=== PATIENT | female | born 1945 | race Caucasian/White ===

== ENCOUNTER → 2017-03-15 | Outpatient (CLI) | payer MEDICARE, OTHER ==
--- NOTE | 2017-03-15 14:51 | MM ---
Reason for exam: screening (asymptomatic). Baseline mammogram. History: Patient is postmenopausal. Physical Findings: Nurse Summary: 1cm nodule at 9 o'clock in the left breast. MG Screening Mammo w CAD Bilateral CC and MLO view(s) were taken. No prior studies available for comparison. The breast tissue is heterogeneously dense. This may lower the sensitivity of mammography. Small nodularity in the left breast. These results were verbally communicated with the patient and result sheet given to the patient on 03/15/17. ASSESSMENT: Incomplete: need additional imaging evaluation, BI-RAD 0 RECOMMENDATION: Ultrasound of the left breast. Palpable by nurse.
--- NOTE | 2017-03-15 14:52 | USB ---
Reason for exam: additional evaluation requested from abnormal screening. History: Patient is postmenopausal. US Breast Workup Limited LT Left breast ultrasound demonstrates no cystic or solid lesion seen. These results were verbally communicated with the patient and result sheet given to the patient on 03/15/17. ASSESSMENT: Probably benign, BI-RAD 3 RECOMMENDATION: Follow-up diagnostic mammogram of the left breast in 6 months.
== END | disposition home or self-care (01) ==
LOC: RADMAMWWP 13:08
PROVIDERS: ATTEND Internal Medicine
DX: Z12.31 Encounter for screening mammogram for malignant neoplasm of breast (principal); R92.2 Inconclusive mammogram; R92.8 Other abnormal and inconclusive findings on diagnostic imaging of breast
CPT/HCPCS: 76642; G0202

== ENCOUNTER → 2018-03-18 | Outpatient (CLI) | payer MEDICARE, OTHER ==
--- NOTE | 2018-03-18 10:06 | MR ---
EXAMINATION TYPE: MR brain wo/w con DATE OF EXAM: 03/18/2018 COMPARISON: NONE HISTORY: Dysarthria TECHNIQUE: Multiplanar, multisequence images of the brain and brainstem is performed without and with IV contras t, utilizing 9 mL intravenous Gadavist . FINDINGS: Diffusion weighted images demonstrate no evidence of a recent infarct or other diffusion ab normality. There is no mass effect or midline shift. Ventricular system compatible with the patient' s age. White matter: There are numerous areas of abnormal signal scattered throughout the white matter bilat erally in a nonspecific pattern no enhancing lesions. No callosal lesions. Midline structures demonstrate normal morphology. The craniocervical junction appears within normal limits. Post contrast images demonstrate no abnormal enhancement. Abnormal signal within the singh mo st typical remote ischemic change. Mild changes of chronic sinusitis. IMPRESSION: 1. Nonspecific white matter changes most typical remote microvascular ischemia. 2. Abnormal signal in singh suggestive of remote ischemia.
== END | disposition home or self-care (01) ==
LOC: RADMRIMAIN 09:10
PROVIDERS: ATTEND Internal Medicine
DX: R90.82 White matter disease, unspecified (principal); Z86.73 Personal history of transient ischemic attack (TIA), and cerebral infarction without residual deficits
CPT/HCPCS: 70553; A9581

== ENCOUNTER → 2018-07-04 | Outpatient (CLI) | payer MEDICARE, OTHER ==
--- NOTE | 2018-07-04 13:15 | US ---
EXAMINATION TYPE: US thyroid st tissue head/neck DATE OF EXAM: 07/04/2018 COMPARISON: NONE CLINICAL HISTORY: E04.1 Thyroid Nodule. GLAND SIZE: Right Lobe: 4.5 x 1.6 x 1.4 cm Overall Parenchyma: homogenous Left Lobe: 4.5 x 1.7 x 1.5 cm Overall Parenchyma: homogeneous Isthmus Thickness: 0.2 cm NODULES RIGHT: # of nodules measured on right: 0 LEFT: # of nodules measured on left: 1 1. 0.6 X 0.5 x 0.5 cm isoechoic solid nodule at the mid pole with well-defined margins; . This nod ule is wider than tall and shows no intranodular vascularity. Prior size: no prior ISTHMUS: # of nodules measured in the isthmus: 0 Bilateral neck scanned, no evidence of lymphadenopathy. Tiny colloid cyst on left lobe measures 0.3 cm. IMPRESSION: 3 mm benign-appearing left thyroid colloid cyst and additional subcentimeter hypoechoic left thyroid nodule for which surveillance is recommended as this does not meet criteria for fine-needle aspiratio n at this time.
== END | disposition home or self-care (01) ==
LOC: RADUSWWP 11:58
PROVIDERS: ATTEND Internal Medicine
DX: E04.1 Nontoxic single thyroid nodule (principal)
CPT/HCPCS: 76536

== ENCOUNTER → 2019-02-09 | Outpatient (CLI) | payer MEDICARE, OTHER ==
--- NOTE | 2019-02-09 15:56 | US ---
EXAMINATION TYPE: US thyroid st tissue head/neck DATE OF EXAM: 02/09/2019 COMPARISON: 07/04/2018 CLINICAL HISTORY: 74-year-old female E04.1 Thryoid nodule. Follow up thyroid nodule TECHNIQUE: Multiple sonographic images of the thyroid gland are obtained. FINDINGS: GLAND SIZE: Right Lobe: 4.5 x 1.7 x 1.5 cm Overall Parenchyma: homogenous Left Lobe: 4.2 x 1.5 x 1.4 cm Overall Parenchyma: homogeneous Isthmus Thickness: 0.3 cm NODULES RIGHT: # of nodules measured on right: 0 LEFT: # of nodules measured on left: 2 1. 7 x 6 x 5 mm hypoechoic mixed nodule at the lower pole with well-defined margins. This nodule is w ider than tall and shows no intranodular vascularity. Prior size: 0.6 x 0.5 x 0.5 cm 2. 3 x 3 x 2 mm colloid cyst at the upper pole with well-defined margins. This nodule is wider than t all and shows no intranodular vascularity. Prior size: 3 x 2 x 2 mm ISTHMUS: # of nodules measured in the isthmus: 0 Bilateral neck scanned, no evidence of lymphadenopathy. IMPRESSION: 1. 7 x 6 mm nodule in the left lower pole versus 6 x 5 mm, previously. Additional follow-up can be co nsidered. 2. The 3 mm colloid cyst in the left lobe is unchanged.
== END | disposition home or self-care (01) ==
LOC: RADUSWWP 15:05
PROVIDERS: ATTEND Internal Medicine
DX: E04.1 Nontoxic single thyroid nodule (principal)
CPT/HCPCS: 76536

== ENCOUNTER → 2019-03-08 | Outpatient (CLI) | payer MEDICARE, OTHER ==
--- NOTE | 2019-03-08 12:20 | FL ---
EXAMINATION TYPE: FL barium swallow w video DATE OF EXAM: 03/08/2019 MODIFIED SWALLOW / DEGLUTITION STUDY CLINICAL HISTORY: Dysphagia. Aphasia also per order. Altered speech recently. TECHNIQUE: Deglutition study is performed utilizing thin liquid barium, honey and nectar thick liqui d barium, barium thick applesauce, and barium coated cracker. A total of 1 minute 49 seconds of fluor oscopic time was utilized during procedure. 0 spot images are saved to PACS. COMPARISON: None. FINDINGS: The oral and pharyngeal phases show satisfactory initiation with all modalities tested. Th ere is poor epiglottis inversion. Satisfactory mastication is seen with solid modalities tested. The re is aspiration which does not initiate cough reflex with thin liquid barium. Other modalities show no penetration or aspiration. More viscous modalities show moderate pharyngeal residuals IMPRESSION: Aspiration with thin liquid barium. Please refer to speech therapist notes for further d etails if necessary.
== END ==
LOC: RADFLMAIN 11:26
PROVIDERS: ATTEND Internal Medicine
DX: R47.01 Aphasia (principal); R13.12 Dysphagia, oropharyngeal phase
CPT/HCPCS: 74230

== ENCOUNTER → 2019-03-18 | Outpatient (CLI) | payer MEDICARE, OTHER ==
--- NOTE | 2019-03-18 09:42 | MR ---
EXAMINATION TYPE: MR brain wo/w con DATE OF EXAM: 03/18/2019 9:32 AM COMPARISON: Previous study dated 03/18/2018. HISTORY: Facial nerve disorder, TIA, compare to prior MR 03-18-18 TECHNIQUE: Multiplanar, multiecho imaging of the brain was obtained with and without intravenous adm inistration of 6 mL intravenous Gadavist. FINDINGS: There is abnormal signal within the leticia likely secondary to layering degeneration. This peterson s progressed from previous. Midline structures are otherwise unremarkable. There is a normal cranioce rvical junction. Echoplanar diffusion imaging is unremarkable. There are normal vascular flow voids. The orbits are unremarkable. There is no evidence of a CP angle mass lesion. There is both diffuse and punctate periventricular white matter change. This has progressed from prev ious. This likely represents a combination of chronic White matter ischemic change and small vessel d isease. Other forms of demyelination are not excluded. There is no evidence of mass effect, midline s hift or intracranial blood. Following intravenous administration of gadolinium, I do not see evidence of abnormal enhancement. IMPRESSION: 1. NO ACUTE INTRACRANIAL ABNORMALITY. 2. PROGRESSION OF THE PATIENT'S PREVIOUSLY DESCRIBED RIGHT MATTER CHANGES INCLUDING THE LETICIA LIKELY R EFLECTS A COMBINATION OF SMALL VESSEL DISEASE AND CHRONIC ISCHEMIC CHANGE. OTHER CAUSES OF DEMYELINAT ION ARE NOT EXCLUDED.
== END | disposition home or self-care (01) ==
LOC: RADMRIMAIN 08:45
PROVIDERS: ATTEND Psychiatry & Neurology Neurology
DX: G45.9 Transient cerebral ischemic attack, unspecified (principal); G51.9 Disorder of facial nerve, unspecified
CPT/HCPCS: 70553; A9585

== ENCOUNTER 2019-04-22 19:36 | Emergency (ER) | payer MEDICARE, OTHER ==
[2019-04-22 19:55] VITALS: TEMP 98.9
[2019-04-22] MEDS ORDERED: DIPH,PERTUS(ACELL)TETVAC-LF 0.5 ML VIAL IM ONE (19:56)
[2019-04-22] MEDS ORDERED: ACETAMINOPHEN TAB 500 MG TAB PO STA (20:23)
--- NOTE | 2019-04-22 21:38 | CT ---
EXAMINATION TYPE: CT brain wo con, CT facial bones wo con DATE OF EXAM: 04/22/2019 HISTORY: Fall injury with headache and facial pain. CT DLP: 1350 mGycm. Automated Exposure Control for Dose Reduction was Utilized. TECHNIQUE: CT scan of the head and facial bones are performed without contrast. COMPARISON: None. FINDINGS: There is no acute intracranial hemorrhage or midline shift identified. There is diffuse v entricular and sulcal prominence consistent with diffuse age-related cerebral atrophy. There is low- attenuation in the periventricular white matter consistent with chronic small vessel ischemic change. The calvarium is intact. There are acute comminuted minimally displaced fractures through the nasal bones with adjacent soft t issue swelling. Orbital floors and suresh are intact. The globes are intact bilaterally. Intraconal fa t is preserved. The zygomatic arches are intact bilaterally. The pterygoid plates are intact. The man dible is intact. Temporomandibular joints are maintained. There are air-fluid levels in bilateral maxillary sinuses without evidence of acute fracture. Remaind er paranasal sinuses are clear. IMPRESSION: 1. No acute intracranial hemorrhage or midline shift. There is mild to moderate diffuse age-related cerebral atrophy and moderate chronic small vessel ischemic change redemonstrated. 2. Acute minimally displaced comminuted fractures through the nasal bones are present. Possible bila teral acute maxillary sinusitis, correlate clinically acute maxillary wall fractures are not clearly identified.
--- NOTE | 2019-04-22 22:02 | ED ---
Fall HPI - General Chief Complaint: Fall Stated Complaint: Fall/Facial injury Time Seen by Provider: 04/22/19 19:56 Source: patient Mode of arrival: wheelchair - History of Present Illness Initial Comments: 74-year-old female patient presents to the emergency department today for evaluation of facial injury. Patient was walking when she slipped and fell and struck her face on the floor. Patient denies any loss of consciousness with this. She denies any current headache or neck pain. Patient does have some bleeding from the nose and is concerned she may have broken it. She denies any chest pain, shortness of breath, abdominal pain, nausea, or vomiting. Denies any blurred or double vision. She denies any other injuries. Denies any use of anticoagulant or antiplatelet medications. She is unsure when her last tetanus vaccine was administered. Patient denies any back pain, dizziness, weakness, or difficulties with bowel movements or urination. - Related Data Home Medications Medication Instructions Recorded Confirmed ALPRAZolam [Xanax] 0.5 mg PO BID PRN 04/22/19 04/22/19 Aspirin EC [Ecotrin] 325 mg PO HS 04/22/19 04/22/19 Cholecalciferol [Vitamin D3 (25 1,000 unit PO DAILY 04/22/19 04/22/19 Mcg = 1000 Iu)] Citalopram Hydrobromide 20 mg PO DAILY 04/22/19 04/22/19 [Citalopram HBr] Cyanocobalamin [Vitamin B-12] 500 mcg PO DAILY 04/22/19 04/22/19 Losartan-Hctz 50-12.5 mg [Hyzaar 1 tab PO DAILY 04/22/19 04/22/19 50-12.5] Omeprazole 20 mg PO DAILY 04/22/19 04/22/19 Pravastatin Sodium [Pravachol] 40 mg PO DAILY 04/22/19 04/22/19 Previous Rx's Medication Instructions Recorded Cephalexin [Keflex] 500 mg PO Q6H #28 cap 04/22/19 Allergies Allergy/AdvReac Type Severity Reaction Status Date / Time No Known Allergies Allergy Verified 04/22/19 20:21 Review of Systems ROS Statement: Those systems with pertinent positive or pertinent negative responses have been documented in the HPI. ROS Other: All systems not noted in ROS Statement are negative. Past Medical History Past Medical History: CVA/TIA, GERD/Reflux, Hyperlipidemia, Hypertension History of Any Multi-Drug Resistant Organisms: None Reported Past Surgical History: Cholecystectomy, Hernia Repair Past Psychological History: Anxiety, Depression Smoking Status: Former smoker Past Alcohol Use History: None Reported Past Drug Use History: None Reported General Exam Limitations: language barrier General appearance: alert, in no apparent distress, other (Physical well- developed, well-nourished elderly female patient in no acute distress. Vital signs upon presentation are temperature 98.9F, pulse 73, respirations 18, blood pressure 145/79, pulse ox 90% on room air.) Eye exam: Present: normal appearance, PERRL, EOMI. Absent: scleral icterus, conjunctival injection, periorbital swelling ENT exam: Present: normal oropharynx, mucous membranes moist, other (Patient has swelling noted over the nasal bone. There is mild ecchymosis noted to the bilateral periorbital region. She has small abrasion noted to the nasal bridge. There is mild bleeding noted from the bilateral nostrils). Absent: normal exam Neck exam: Present: normal inspection, full ROM, other (Nontender, no step-off, no deformity to firm midline palpation of the posterior cervical spine. Full range of motion without pain or limitation.). Absent: tenderness, meningismus, lymphadenopathy Respiratory exam: Present: normal lung sounds bilaterally. Absent: respiratory distress, wheezes, rales, rhonchi, stridor Cardiovascular Exam: Present: regular rate, normal rhythm, normal heart sounds. Absent: systolic murmur, diastolic murmur, rubs, gallop, clicks GI/Abdominal exam: Present: soft, normal bowel sounds. Absent: distended, tenderness, guarding, rebound, rigid Neurological exam: Present: alert, oriented X3, CN II-XII intact, other (Strength in all 4 extremities is 5/5) Psychiatric exam: Present: normal affect, normal mood Skin exam: Present: warm, dry, intact, normal color. Absent: rash Course Vital Signs 04/22/19 04/22/19 19:48 22:17 Temperature 98.9 F Pulse Rate 73 92 Respiratory 18 16 Rate Blood Pressure 145/79 139/78 O2 Sat by Pulse 90 L 100 Oximetry Medical Decision Making - Medical Decision Making 74-year-old female patient presented to the emergency department today for evaluation of facial pain after experiencing a fall. Physical examination did reveal swelling surrounding the nasal bone with a small abrasion. There is also tenderness over the nasal bone. CT facial bones and brain was obtained. Brain CT is negative. There is evidence of comminuted nasal bone fracture. Patient was started on antibiotics. Her tetanus was updated. She'll be discharged home at this time to follow-up with the ears, nose, throat specialist for further evaluation. Did discuss findings and results with the patient. She verbalizes understanding and agrees with this plan. - Radiology Data Radiology results: report reviewed, image reviewed CT facial bones and brain was obtained. Report was reviewed in its entirety. Impression by Dr. Groves shows no acute intracranial hemorrhage or midline shift. There is mild to moderate diffuse age-related cerebral atrophy and moderate chronic small vessel ischemic changes redemonstrate a. Acute displaced comminuted fracture to the nasal bones are present. Possible bilateral acute maxillary sinusitis without evidence of acute fracture. Disposition Clinical Impression: Nasal bone fracture Disposition: HOME SELF-CARE Condition: Good Instructions (If sedation given, give patient instructions): Nasal Fracture (ED) Additional Instructions: Apply ice. Take Tylenol as needed for pain control. Follow-up with the ears, nose, throat specialist for further evaluation. Return to the emergency department immediately for any new, worsening, or concerning symptoms Prescriptions: Cephalexin [Keflex] 500 mg PO Q6H #28 cap Is patient prescribed a controlled substance at d/c from ED?: No Referrals: Libertad Campos MD [Primary Care Provider] - 1-2 days Cruzito Pizano DO [Doctor of Osteopathic Medicine] - 1-2 days Time of Disposition: 22:02
[2019-04-22 22:18] VITALS: BP 139/78; PULSE 92; RESP 16
== END 2019-04-22 22:18 | disposition home or self-care (01) ==
LOC: EC 19:36
DX: S02.2XXA Fracture of nasal bones, initial encounter for closed fracture (principal); S00.12XA Contusion of left eyelid and periocular area, initial encounter; S00.11XA Contusion of right eyelid and periocular area, initial encounter; K21.9 Gastro-esophageal reflux disease without esophagitis; E78.5 Hyperlipidemia, unspecified; I10 Essential (primary) hypertension; F41.9 Anxiety disorder, unspecified; F32.9 Major depressive disorder, single episode, unspecified; Z86.73 Personal history of transient ischemic attack (TIA), and cerebral infarction without residual deficits; Z87.891 Personal history of nicotine dependence; Z23 Encounter for immunization; Z79.82 Long term (current) use of aspirin; Z79.899 Other long term (current) drug therapy; W01.10XA Fall on same level from slipping, tripping and stumbling with subsequent striking against unspecified object, initial encounter; Y92.59 Other trade areas as the place of occurrence of the external cause
CPT/HCPCS: 70450; 70486; 90471; 90715; 99283

== ENCOUNTER 2019-04-28 14:39 | Emergency (ER) | payer MEDICARE, OTHER ==
[2019-04-28 15:07] VITALS: RESP 18; TEMP 97.9
--- NOTE | 2019-04-28 16:03 | ED ---
ENT HPI - General Chief complaint: ENT Stated complaint: Bloody nose, Fall on wednesday Time Seen by Provider: 04/28/19 15:38 Source: patient, family Mode of arrival: wheelchair Limitations: no limitations - History of Present Illness Initial comments: Patient is a 74-year-old female complaining of nosebleed on and off 2-3 days. Patient was recently in the emergency department 5 days ago for a fall. She sustained a nasal bone fracture and was put on antibiotics. Patient was also instructed to stop aspirin for 1-2 days. Patient returns today with 2 of her daughters with continued of a nosebleed today. They have concerns that something else is going on. Patient denies any further trauma to the area. Patient did restart the aspirin 2 days ago. Patient also reports occasional left vision changes since the fall. No other complaints at this time. - Related Data Home Medications Medication Instructions Recorded Confirmed ALPRAZolam [Xanax] 0.5 mg PO BID PRN 04/22/19 04/22/19 Aspirin EC [Ecotrin] 325 mg PO HS 04/22/19 04/22/19 Cholecalciferol [Vitamin D3 (25 1,000 unit PO DAILY 04/22/19 04/22/19 Mcg = 1000 Iu)] Citalopram Hydrobromide 20 mg PO DAILY 04/22/19 04/22/19 [Citalopram HBr] Cyanocobalamin [Vitamin B-12] 500 mcg PO DAILY 04/22/19 04/22/19 Losartan-Hctz 50-12.5 mg [Hyzaar 1 tab PO DAILY 04/22/19 04/22/19 50-12.5] Omeprazole 20 mg PO DAILY 04/22/19 04/22/19 Pravastatin Sodium [Pravachol] 40 mg PO DAILY 04/22/19 04/22/19 Previous Rx's Medication Instructions Recorded Cephalexin [Keflex] 500 mg PO Q6H #28 cap 04/22/19 Allergies Allergy/AdvReac Type Severity Reaction Status Date / Time No Known Allergies Allergy Verified 04/28/19 15:07 Review of Systems ROS Statement: Those systems with pertinent positive or pertinent negative responses have been documented in the HPI. ROS Other: All systems not noted in ROS Statement are negative. Past Medical History Past Medical History: CVA/TIA, GERD/Reflux, Hyperlipidemia, Hypertension History of Any Multi-Drug Resistant Organisms: None Reported Past Surgical History: Cholecystectomy, Hernia Repair Past Psychological History: Anxiety, Depression Smoking Status: Former smoker Past Alcohol Use History: None Reported Past Drug Use History: None Reported General Exam - General Exam Comments Initial Comments: GENERAL: Well-appearing, well-nourished and in no acute distress. HEAD: Atraumatic, normocephalic. EYES: Pupils equal round and reactive to light, extraocular movements intact, sclera anicteric, conjunctiva are normal. Visual acuity normal ENT: TMs normal, nares patent, oropharynx clear without exudates. Moist mucous membranes. Nose bleed from the right nostril. Bruising present along the nasal bone and underneath both eyes from nasal fracture. NECK: Normal range of motion, supple without lymphadenopathy or JVD. LUNGS: Breath sounds clear to auscultation bilaterally and equal. No wheezes rales or rhonchi. HEART: Regular rate and rhythm without murmurs, rubs or gallops. ABDOMEN: Soft, nontender, normoactive bowel sounds. No guarding, no rebound. No masses appreciated. : Deferred EXTREMITIES: Normal range of motion, no pitting or edema. No clubbing or cyanosis. NEUROLOGICAL: Cranial nerves II through XII grossly intact. Normal speech, normal gait. PSYCH: Normal mood, normal affect. SKIN: Warm, Dry, normal turgor, no rashes or lesions noted. Limitations: no limitations Course Vital Signs 04/28/19 04/28/19 15:03 17:11 Temperature 97.9 F 97.9 F Pulse Rate 68 75 Respiratory 18 18 Rate Blood Pressure 117/63 149/67 O2 Sat by Pulse 92 L 94 L Oximetry Medical Decision Making - Medical Decision Making Patient is a 74-year-old female complaining of nosebleed status post nasal fracture 5 days ago. Patient was seen in this ER for fall [address] confirmed nasal bone fracture. Patient is back today due to continued nosebleed 1 day. Chest reports occasional left vision changes. Exam was unremarkable including neuro and vision exam. Nosebleed was stopped with use of nose clamp. Discussed with patient weighs to stopat home. Patient counseled to stop aspirin for another 3 days. Patient will follow up with ENT for other further complaints. Patient was happy with plan and will be discharged. Case discussed with Dr. Sterling. Disposition Clinical Impression: Epistaxis Disposition: HOME SELF-CARE Condition: Stable Instructions (If sedation given, give patient instructions): Nosebleed (ED) Additional Instructions: Please return to the Emergency Department if symptoms worsen or any other concerns. Follow-up with ENT. Is patient prescribed a controlled substance at d/c from ED?: No Referrals: Libertad Campos MD [Primary Care Provider] - 1-2 days
[2019-04-28 17:13] VITALS: BP 149/67; PULSE 75
== END 2019-04-28 17:13 | disposition home or self-care (01) ==
LOC: EC 14:39
DX: R04.0 Epistaxis (principal); S02.2XXD Fracture of nasal bones, subsequent encounter for fracture with routine healing; K21.9 Gastro-esophageal reflux disease without esophagitis; E78.5 Hyperlipidemia, unspecified; I10 Essential (primary) hypertension; F41.9 Anxiety disorder, unspecified; F32.9 Major depressive disorder, single episode, unspecified; Z86.14 Personal history of Methicillin resistant Staphylococcus aureus infection; Z87.891 Personal history of nicotine dependence; Z79.82 Long term (current) use of aspirin; Z79.899 Other long term (current) drug therapy; W19.XXXD Unspecified fall, subsequent encounter
CPT/HCPCS: 99283

== ENCOUNTER → 2019-05-03 | Outpatient (CLI) | payer MEDICARE, OTHER ==
--- NOTE | 2019-05-03 12:05 | XR ---
EXAMINATION TYPE: XR chest 2V DATE OF EXAM: 05/03/2019 COMPARISON: 12/02/2011 HISTORY: Cough TECHNIQUE: Frontal and lateral views of the chest are obtained. FINDINGS: Patchy right middle lobe opacity is seen on the frontal view only. Remainder the lungs are clear. Pulmonary hyperinflation suggests a component of underlying pulmonary COPD. Cardiomediastinal silhouette is prominent, upper limits of normal and unchanged from the prior. Minimal degenerative c hanges of the thoracic spine are present. IMPRESSION: Patchy right middle lobe opacity may represent early pneumonia or atelectasis frontal vi ew only.
== END | disposition home or self-care (01) ==
LOC: RADXRMAIN 10:00
PROVIDERS: ATTEND Otolaryngology
DX: R91.8 Other nonspecific abnormal finding of lung field (principal); R05 Cough
CPT/HCPCS: 71046

== ENCOUNTER 2019-08-21 15:44 | Inpatient (IN) | payer MEDICARE, OTHER ==
[2019-08-21] MEDS ORDERED: IPRATROPIUM-ALBUTEROL 3 ML NEB INHALATION STA (16:17)
[2019-08-21 17:16] LABS: Appearance,Urine Clear (Clear); Bilirubin,Urine Negative (Negative); Blood,Urine Negative (Negative); Color,Urine Yellow; Glucose,Urine (UA) Negative (Negative); Ketones,Urine Negative (Negative); Leukocyte Esterase,Urine Large (Negative); Mucus,Urine Rare /hpf; Nitrite,Urine Negative (Negative); Protein,Urine Negative (Negative); RBC,Urine <1 /hpf (0-5); Specific Gravity,Urine 1.015 (1.001-1.035); Squamous Epithelial Cell,Urine <1 /hpf (0-4)
--- NOTE | 2019-08-21 17:18 | ED ---
SOB HPI - General Chief Complaint: Shortness of Breath Stated Complaint: SOB/trouble urinating Time Seen by Provider: 08/21/19 16:06 Source: patient, RN notes reviewed, old records reviewed Mode of arrival: wheelchair Limitations: language barrier, physical limitation - History of Present Illness Initial Comments: This is a 74-year-old female the ER for evaluation she presents today for evaluation of shortness of breath. Patient is medical history significant medical medical problems including diagnosis of ALS. Her visiting nurse patient was known and found to have a low pulse ox. Pulse ox is low today. Patient is on home O2. Patient is unable to speak secondary to ALS is right down that she's been having falls and increasing weakness. Family denies any recent fevers no recent change in medications multiple recent hospitalizations. No k nown significant sick contacts - Related Data Home Medications Medication Instructions Recorded Confirmed ALPRAZolam [Xanax] 0.5 mg PO BID PRN 04/22/19 08/21/19 Citalopram Hydrobromide 20 mg PO DAILY 04/22/19 08/21/19 [Citalopram HBr] Omeprazole 20 mg PO DAILY 04/22/19 08/21/19 Pravastatin Sodium [Pravachol] 40 mg PO DAILY 04/22/19 08/21/19 Loratadine [Claritin] 10 mg PO DAILY 08/21/19 08/21/19 Losartan [Cozaar] 25 mg PO DAILY 08/21/19 08/21/19 Riluzole [Rilutek] 50 mg PO Q12H 08/21/19 08/21/19 Allergies Allergy/AdvReac Type Severity Reaction Status Date / Time No Known Allergies Allergy Verified 08/21/19 16:31 Review of Systems ROS Statement: Those systems with pertinent positive or pertinent negative responses have been documented in the HPI. ROS Other: All systems not noted in ROS Statement are negative. Past Medical History Past Medical History: CVA/TIA, GERD/Reflux, Hyperlipidemia, Hypertension Additional Past Medical History / Comment(s): als, feeding tube History of Any Multi-Drug Resistant Organisms: None Reported Past Surgical History: Cholecystectomy, Hernia Repair Additional Past Surgical History / Comment(s): feeding tube Past Psychological History: Anxiety, Depression Smoking Status: Former smoker Past Alcohol Use History: None Reported Past Drug Use History: None Reported General Exam Limitations: language barrier, physical limitation General appearance: alert, anxious, lethargic, in distress Head exam: Present: atraumatic, normocephalic, normal inspection Eye exam: Present: normal appearance, PERRL, EOMI. Absent: scleral icterus, conjunctival injection, periorbital swelling ENT exam: Present: normal exam, mucous membranes dry Neck exam: Present: normal inspection. Absent: tenderness, meningismus, lymphadenopathy Respiratory exam: Present: normal lung sounds bilaterally. Absent: respiratory distress, wheezes, rales, rhonchi, stridor Cardiovascular Exam: Present: regular rate, normal rhythm, normal heart sounds. Absent: systolic murmur, diastolic murmur, rubs, gallop, clicks GI/Abdominal exam: Present: soft, normal bowel sounds. Absent: distended, tenderness, guarding, rebound, rigid Extremities exam: Present: normal inspection, full ROM, normal capillary refill. Absent: tenderness, pedal edema, joint swelling, calf tenderness Back exam: Present: normal inspection Neurological exam: Present: alert, oriented X3, CN II-XII intact Psychiatric exam: Present: normal affect, normal mood Skin exam: Present: warm, dry, intact, normal color. Absent: rash Course Vital Signs 08/21/19 08/21/19 08/21/19 15:49 16:00 17:58 Temperature 98.2 F Pulse Rate 79 80 Respiratory 22 19 Rate Blood Pressure 110/51 120/61 O2 Sat by Pulse 77 L 93 L 77 L Oximetry 08/21/19 08/21/19 08/21/19 18:01 18:12 19:13 Temperature 98.3 F Pulse Rate 80 84 79 Respiratory 18 Rate Blood Pressure 108/60 O2 Sat by Pulse 93 L Oximetry - Reevaluation(s) Reevaluation #1: 08/21/19 19:25 Medical records reviewed Reevaluation #2: 08/21/19 19:25 Oxygen levels initially improved here in the ER - Consultations Consultation #1: Spoke with Dr. Garduno who is okay for admission Medical Decision Making - Medical Decision Making Every 2 female recent diagnosis of ALS coming in for hypoxia. Patient found to have significant pneumonia suspect aspiration pneumonia will cover clindamycin. Patient be admitted for continued monitoring of pulse ox respiration status. - Lab Data Result diagrams: 08/21/19 17:00 08/21/19 17:00 Lab Results 08/21/19 08/21/19 08/21/19 Range/Units 17:00 17:00 17:00 WBC 5.6 (3.8-10.6) k/uL RBC 4.27 (3.80-5.40) m/uL Hgb 12.6 (11.4-16.0) gm/dL Hct 37.4 (34.0-46.0) % MCV 87.7 (80.0-100.0) fL MCH 29.5 (25.0-35.0) pg MCHC 33.6 (31.0-37.0) g/dL RDW 15.3 (11.5-15.5) % Plt Count 180 (150-450) k/uL Neutrophils % 73 % Lymphocytes % 17 % Monocytes % 5 % Eosinophils % 2 % Basophils % 0 % Neutrophils # 4.1 (1.3-7.7) k/uL Lymphocytes # 1.0 (1.0-4.8) k/uL Monocytes # 0.3 (0-1.0) k/uL Eosinophils # 0.1 (0-0.7) k/uL Basophils # 0.0 (0-0.2) k/uL Hypochromasia Slight PT 9.8 (9.0-12.0) sec INR 0.9 (<1.2) APTT 23.9 (22.0-30.0) sec D-Dimer 0.62 H (<0.60) mg/L FEU Sodium 138 (137-145) mmol/L Potassium 4.7 (3.5-5.1) mmol/L Chloride 95 L (98-107) mmol/L Carbon Dioxide 39 H (22-30) mmol/L Anion Gap 4 mmol/L BUN 27 H (7-17) mg/dL Creatinine 0.40 L (0.52-1.04) mg/dL Est GFR (CKD-EPI)AfAm >90 (>60 ml/min/1.73 sqM) Est GFR (CKD-EPI)NonAf >90 (>60 ml/min/1.73 sqM) Glucose 119 H (74-99) mg/dL Calcium 8.6 (8.4-10.2) mg/dL Magnesium 2.0 (1.6-2.3) mg/dL Total Bilirubin 0.8 (0.2-1.3) mg/dL AST 22 (14-36) U/L ALT 13 (9-52) U/L Alkaline Phosphatase 63 (38-126) U/L Creatine Kinase 137 H (30-135) U/L Troponin I (0.000-0.034) ng/mL NT-Pro-B Natriuret Pep pg/mL Total Protein 6.1 L (6.3-8.2) g/dL Albumin 3.4 L (3.5-5.0) g/dL Urine Color Urine Appearance (Clear) Urine pH (5.0-8.0) Ur Specific Arma (1.001-1.035) Urine Protein (Negative) Urine Glucose (UA) (Negative) Urine Ketones (Negative) Urine Blood (Negative) Urine Nitrite (Negative) Urine Bilirubin (Negative) Urine Urobilinogen (<2.0) mg/dL Ur Leukocyte Esterase (Negative) Urine RBC (0-5) /hpf Urine WBC (0-5) /hpf Ur Squamous Epith Cells (0-4) /hpf Urine Mucus (None) /hpf 08/21/19 08/21/19 08/21/19 Range/Units 17:00 17:00 17:08 WBC (3.8-10.6) k/uL RBC (3.80-5.40) m/uL Hgb (11.4-16.0) gm/dL Hct (34.0-46.0) % MCV (80.0-100.0) fL MCH (25.0-35.0) pg MCHC (31.0-37.0) g/dL RDW (11.5-15.5) % Plt Count (150-450) k/uL Neutrophils % % Lymphocytes % % Monocytes % % Eosinophils % % Basophils % % Neutrophils # (1.3-7.7) k/uL Lymphocytes # (1.0-4.8) k/uL Monocytes # (0-1.0) k/uL Eosinophils # (0-0.7) k/uL Basophils # (0-0.2) k/uL Hypochromasia PT (9.0-12.0) sec INR (<1.2) APTT (22.0-30.0) sec D-Dimer (<0.60) mg/L FEU Sodium (137-145) mmol/L Potassium (3.5-5.1) mmol/L Chloride (98-107) mmol/L Carbon Dioxide (22-30) mmol/L Anion Gap mmol/L BUN (7-17) mg/dL Creatinine (0.52-1.04) mg/dL Est GFR (CKD-EPI)AfAm (>60 ml/min/1.73 sqM) Est GFR (CKD-EPI)NonAf (>60 ml/min/1.73 sqM) Glucose (74-99) mg/dL Calcium (8.4-10.2) mg/dL Magnesium (1.6-2.3) mg/dL Total Bilirubin (0.2-1.3) mg/dL AST (14-36) U/L ALT (9-52) U/L Alkaline Phosphatase (38-126) U/L Creatine Kinase (30-135) U/L Troponin I <0.012 (0.000-0.034) ng/mL NT-Pro-B Natriuret Pep 68 pg/mL Total Protein (6.3-8.2) g/dL Albumin (3.5-5.0) g/dL Urine Color Yellow Urine Appearance Clear (Clear) Urine pH 7.0 (5.0-8.0) Ur Specific Arma 1.015 (1.001-1.035) Urine Protein Negative (Negative) Urine Glucose (UA) Negative (Negative) Urine Ketones Negative (Negative) Urine Blood Negative (Negative) Urine Nitrite Negative (Negative) Urine Bilirubin Negative (Negative) Urine Urobilinogen 2.0 (<2.0) mg/dL Ur Leukocyte Esterase Large H (Negative) Urine RBC <1 (0-5) /hpf Urine WBC 25 H (0-5) /hpf Ur Squamous Epith Cells <1 (0-4) /hpf Urine Mucus Rare H (None) /hpf - EKG Data -: EKG Interpreted by Me (EKG shows sinus rhythm rate of 78, WV 154, QRS 74, QTC 442) - Radiology Data Radiology results: report reviewed (Chest x-ray shows significant pneumonia), image reviewed Critical Care Time Critical Care Time: Yes Total Critical Care Time: 31 Disposition Clinical Impression: Nosocomial pneumonia, Hypoxia Disposition: ADMITTED IP TO THIS HOSP Condition: Fair Is patient prescribed a controlled substance at d/c from ED?: No Referrals: Libertad Campos MD [Primary Care Provider] - 1-2 days
--- NOTE | 2019-08-21 17:27 | XR ---
EXAMINATION TYPE: XR chest 2V DATE OF EXAM: 08/21/2019 COMPARISON: 05/03/2019 HISTORY: Short of breath TECHNIQUE: Frontal and lateral views of the chest are obtained. FINDINGS: There is some coarse interstitial density in the lungs. There is slight blunting of the ri ght costophrenic angle. There is a mild infiltrate in the right middle lobe. There are no hilar lisette s. Heart size is normal. There is no heart failure. Bony thorax is intact. IMPRESSION: There is increased pleural reaction and right middle lobe infiltrate compared to last ex am. There is probably mild pulmonary fibrosis.
[2019-08-21 17:38] LABS: Basophils % (A) 0 %; Eosinophils # (A) 0.1 k/uL (0-0.7); Eosinophils % (A) 2 %; HCT 37.4 % (34.0-46.0); HGB 12.6 gm/dL (11.4-16.0); Hypochromasia Slight; Lymphocytes % (A) 17 %; MCH 29.5 pg (25.0-35.0); MCHC 33.6 g/dL (31.0-37.0); MCV 87.7 fL (80.0-100.0); Mean Platelet Volume 5.8; Monocytes # (A) 0.3 k/uL (0-1.0); Monocytes % (A) 5 %; Neutrophils # (A) 4.1 k/uL (1.3-7.7); Neutrophils % (A) 73 %; Platelet Count 180 k/uL (150-450); RBC 4.27 m/uL (3.80-5.40); RDW 15.3 % (11.5-15.5); WBC 5.6 k/uL (3.8-10.6)
[2019-08-21 17:48] LABS: ALT 13 U/L (9-52); AST 22 U/L (14-36); African American GFR (CKD) >90 (>60 ml/min/1.73 sqM); Albumin 3.4 g/dL (3.5-5.0); Alkaline Phosphatase 63 U/L (38-126); Anion Gap 4 mmol/L; Blood Urea Nitrogen 27 mg/dL (7-17); Calcium 8.6 mg/dL (8.4-10.2); Carbon Dioxide 39 mmol/L (22-30); Chloride 95 mmol/L (98-107); Creatine Kinase 137 U/L (30-135); Glucose 119 mg/dL (74-99); Potassium 4.7 mmol/L (3.5-5.1); Sodium 138 mmol/L (137-145); Total Bilirubin 0.8 mg/dL (0.2-1.3); Total Protein 6.1 g/dL (6.3-8.2)
[2019-08-21 17:49] LABS: INR 0.9 (<1.2); Partial Thromboplastin Time 23.9 sec (22.0-30.0); Prothrombin Time 9.8 sec (9.0-12.0)
[2019-08-21 18:15] LABS: D-Dimer 0.62 mg/L FEU (<0.60)
[2019-08-21] MEDS ORDERED: PNEUMONIA PROTOCOL UTILIZED 1 EACH MISC PO PRN (19:21)
[2019-08-21] MEDS ORDERED: PIPERACILLIN-TAZOBACTAM 3.375 GM in SODIUM CHLORIDE 0.9% 100 ML IVPB STA (19:21)
[2019-08-21] MEDS ORDERED: LEVOFLOXACIN 750MG-D5W PMX 750 MG in DEXTROSE/WATER 1 150ML.BAG IVPB STA (19:21)
[2019-08-21] MEDS: IPRATROPIUM-ALBUTEROL 3 ML NEB INHALATION SCH (20:26)
[2019-08-21] MEDS: SODIUM CHLORIDE 0.9% 1,000 ML IV SCH (21:24)
[2019-08-21] MEDS ORDERED: LEVOFLOXACIN 750MG-D5W PMX 750 MG in DEXTROSE/WATER 1 150ML.BAG IVPB ONE (23:00)
[2019-08-22] MEDS: NON FORMULARY DRUG (Riluzole [Rilutek] 50 MG) PO SCH ×2 (00:06→13:57)
[2019-08-22] MEDS: ALPRAZolam 0.5 MG TAB PO PRN ×2 (00:06→11:45)
[2019-08-22] MEDS: PANTOPRAZOLE 40 MG TABLET PO SCH ×2 (00:06→08:55)
[2019-08-22] MEDS: CLINDAMYCIN 600 MG in DEXTROSE 5% IN WATER 50 ML IVPB SCH ×6 (00:46→16:05)
[2019-08-22] MEDS: PIPERACILLIN-TAZOBACTAM 3.375 GM in SODIUM CHLORIDE 0.9% 100 ML IVPB SCH ×2 (04:51→11:45)
[2019-08-22] MEDS: SODIUM CHLORIDE 0.9% 1,000 ML IV SCH ×2 (04:51→16:05)
[2019-08-22] MEDS ORDERED: ENOXAPARIN 40 MG/0.4 ML SYRINGE SQ SCH (09:00)
[2019-08-22] MEDS: IPRATROPIUM-ALBUTEROL 3 ML NEB INHALATION SCH ×2 (09:10→12:06)
[2019-08-22] MEDS ORDERED: IBUPROFEN 400 MG TAB PO PRN (11:17)
[2019-08-22 11:31] VITALS: BMI 24.6
--- NOTE | 2019-08-22 12:04 | XR ---
EXAMINATION TYPE: XR chest 2V DATE OF EXAM: 08/22/2019 COMPARISON: 08/21/2019 HISTORY: Pneumonia TECHNIQUE: 2 view chest FINDINGS: Posterior left infiltrate remains present. There is diffuse increased lung markings which a ppear similar to prior study on the frontal projection. Small left pleural effusion may be present. IMPRESSION: 1. Posterior infiltrate left lower lobe is stable from comparison.
--- NOTE | 2019-08-22 13:33 | P.HPIM ---
History of Present Illness 74-year-old female known to me from her previous hospital physician in [facility] came in with complaints of shortness of breath patient was hypoxic and breathing harder. All the workup is positive for possible aspiration in the left lower lobar and there is some fibrosis in the right middle lobe. Patient does have history of amyotrophic lateral sclerosis presently bedbound. Patient declined hospice in the past. Patient was given but multiple antibiotics including Zosyn which is appropriate patient is also on clindamycin. I discarded all the medication patient was started on Augmentin. I gave her an option of staying here tonight versus going home patient is saturating well at this time patient uses 2 L of oxygen an as-needed basis at home. Patient doesn't have any significant wheezing on exam. patient blood pressure is low normal patient is on Cozaar patient did show significant amount of which is she was started on PEG tube feedings because of that reason I'll completely discontinue losartan loss of weight may be contributing to her better blood pressure control.has per the family patient have a better support system at home than here in the hospital regarding her tube feedings and overall care. Review of Systems REVIEW OF SYSTEMS: CONSTITUTIONAL: No fever, no malaise, no fatigue. HEENT: No recent visual problems or hearing problems. Denied any sore throat. CARDIOVASCULAR: No chest pain, orthopnea, PND, no palpitations, no syncope. PULMONARY: No shortness of breath, no cough, no hemoptysis. GASTROINTESTINAL: No diarrhea, no nausea, no vomiting, no abdominal pain. NEUROLOGICAL: No headaches, no weakness, no numbness. HEMATOLOGICAL: Denies any bleeding or petechiae. GENITOURINARY: Denies any burning micturition, frequency, or urgency. MUSCULOSKELETAL/RHEUMATOLOGICAL: Denies any joint pain, swelling, or any muscle pain. ENDOCRINE: Denies any polyuria or polydipsia. The rest of the 14-point review of systems is negative. patient is mostly nonverbal because of her amyotrophic lateral sclerosis does communicate with writing on a board Past Medical History Past Medical History: GERD/Reflux, Hyperlipidemia, Hypertension Additional Past Medical History / Comment(s): als, feeding tube History of Any Multi-Drug Resistant Organisms: None Reported Past Surgical History: Cholecystectomy, Hernia Repair Additional Past Surgical History / Comment(s): feeding tube Past Psychological History: Anxiety, Depression Smoking Status: Former smoker Past Alcohol Use History: None Reported Past Drug Use History: None Reported Medications and Allergies Home Medications Medication Instructions Recorded Confirmed Type ALPRAZolam [Xanax] 0.5 mg PO BID PRN 04/22/19 08/21/19 History Citalopram Hydrobromide 20 mg PO DAILY 04/22/19 08/21/19 History [Citalopram HBr] Omeprazole 20 mg PO DAILY 04/22/19 08/21/19 History Pravastatin Sodium [Pravachol] 40 mg PO DAILY 04/22/19 08/21/19 History Loratadine [Claritin] 10 mg PO DAILY 08/21/19 08/21/19 History Riluzole [Rilutek] 50 mg PO Q12H 08/21/19 08/21/19 History Albuterol Nebulized [Ventolin 2.5 mg INHALATION Q4H PRN #90 nebu 08/22/19 Rx Nebulized] Amoxic-Pot Clav 875-125Mg 1 tab PO BID 7 Days #14 tab 08/22/19 Rx [Augmentin 875-125] Allergies Allergy/AdvReac Type Severity Reaction Status Date / Time No Known Allergies Allergy Verified 08/21/19 16:31 Physical Exam Vitals: Vital Signs Temp Pulse Pulse Resp BP BP Pulse Ox 08/22/19 12:17 82 08/22/19 12:06 82 08/22/19 09:27 80 08/22/19 09:10 84 08/22/19 04:48 98.0 F 82 16 97/57 95 08/21/19 21:48 98.4 F 78 17 116/69 94 L 08/21/19 21:22 98.3 F 78 18 110/54 93 L 08/21/19 20:39 78 08/21/19 20:27 75 08/21/19 19:13 98.3 F 79 18 108/60 93 L 08/21/19 18:12 84 08/21/19 18:01 80 08/21/19 17:58 77 L 08/21/19 16:00 80 19 120/61 93 L 08/21/19 15:49 98.2 F 79 22 110/51 77 L Intake and Output 08/21/19 08/22/19 08/22/19 22:59 06:59 14:59 Other: Voiding Method Bedside Commode # Voids 2 Weight 63.049 kg 63.049 kg PHYSICAL EXAMINATION: GENERAL: The patient is alert and oriented x3, not in any acute distress. Well developed, well nourished. HEENT: Pupils are round and equally reacting to light. EOMI. No scleral icterus. No conjunctival pallor. Normocephalic, atraumatic. No pharyngeal erythema. No thyromegaly. CARDIOVASCULAR: S1 and S2 present. No murmurs, rubs, or gallops. PULMONARY: Chest is clear to auscultation, no wheezing or crackles. ABDOMEN: Soft, nontender, nondistended, normoactive bowel sounds. No palpable organomegaly. MUSCULOSKELETAL: No joint swelling or deformity. EXTREMITIES: No cyanosis, clubbing, or pedal edema. NEUROLOGICAL: significant weakness in both legs and less weakness in the arms tremor. SKIN: No rashes. Results CBC & Chem 7: 08/21/19 17:00 08/21/19 17:00 Labs: Abnormal Lab Results - Last 24 Hours (Table) 08/21/19 08/21/19 08/21/19 Range/Units 17:00 17:00 17:08 D-Dimer 0.62 H (<0.60) mg/L FEU Chloride 95 L (98-107) mmol/L Carbon Dioxide 39 H (22-30) mmol/L BUN 27 H (7-17) mg/dL Creatinine 0.40 L (0.52-1.04) mg/dL Glucose 119 H (74-99) mg/dL Creatine Kinase 137 H (30-135) U/L Total Protein 6.1 L (6.3-8.2) g/dL Albumin 3.4 L (3.5-5.0) g/dL Ur Leukocyte Esterase Large H (Negative) Urine WBC 25 H (0-5) /hpf Urine Mucus Rare H (None) /hpf Microbiology - Last 24 Hours (Table) 08/21/19 17:08 Urine Culture - Preliminary Urine,Voided Thrombosis Risk Factor Assmnt - Choose All That Apply Any of the Below Risk Factors Present?: No Other Risk Factors: Yes Each Risk Factor Represents 2 Points: Age 61-74 years Other congenital or acquired thrombophilia - If yes, enter type in comment: No Thrombosis Risk Factor Assessment Total Risk Factor Score: 2 Thrombosis Risk Factor Assessment Level: Low Risk Assessment and Plan Plan: hypoxia: Possibly secondary to aspiration pneumonia or pneumonitis and bronchospasm patient will be discharged on Augmentin for a week and will be prescribed albuterol on as-needed basis. -hypertension: Patient is presently hypotensive Cozaar will be discontinued because of her significant weight loss patient probably will not require any antidepressants medications -Hyperlipidemia also order lipase panel but results will not be available patient's the results will be followed by PCP and probably statin can be discontinued as well if her LDL is better controlled than before. -Myotrophic lateral sclerosis: Supportive care and continue PEG tube feedings -Depression patient will be discharged today.
--- NOTE | 2019-08-22 13:34 | P.DS ---
Providers Date of admission: 08/21/19 19:21 Attending physician: Kait Calix Consults: 08/21/19 19:21 Consult Physician Routine Consulting Provider: Sarah Chan Consult Reason/Comments: ALS Do you want consulting provider notified?: Yes Primary care physician: Libertad Campos Hospital Course: as mentioned in HPI Patient Condition at Discharge: Fair Plan - Discharge Summary Discharge Rx Participant: No New Discharge Prescriptions: New Amoxic-Pot Clav 875-125Mg [Augmentin 875-125] 1 tab PO BID 7 Days #14 tab Albuterol Nebulized [Ventolin Nebulized] 2.5 mg INHALATION Q4H PRN #90 nebu PRN Reason: Shortness Of Breath Or Wheezing Discontinued Losartan [Cozaar] 25 mg PO DAILY No Action Omeprazole 20 mg PO DAILY Pravastatin Sodium [Pravachol] 40 mg PO DAILY Citalopram Hydrobromide [Citalopram HBr] 20 mg PO DAILY ALPRAZolam [Xanax] 0.5 mg PO BID PRN PRN Reason: Anxiety Loratadine [Claritin] 10 mg PO DAILY Riluzole [Rilutek] 50 mg PO Q12H Discharge Medication List ALPRAZolam [Xanax] 0.5 mg PO BID PRN 04/22/19 [History] Citalopram Hydrobromide [Citalopram HBr] 20 mg PO DAILY 04/22/19 [History] Omeprazole 20 mg PO DAILY 04/22/19 [History] Pravastatin Sodium [Pravachol] 40 mg PO DAILY 04/22/19 [History] Loratadine [Claritin] 10 mg PO DAILY 08/21/19 [History] Riluzole [Rilutek] 50 mg PO Q12H 08/21/19 [History] Albuterol Nebulized [Ventolin Nebulized] 2.5 mg INHALATION Q4H PRN #90 nebu 08/22/19 [Rx] Amoxic-Pot Clav 875-125Mg [Augmentin 875-125] 1 tab PO BID 7 Days #14 tab 08/22/19 [Rx] Follow up Appointment(s)/Referral(s): Libertad Campos MD [Primary Care Provider] - 3 Days Discharge Disposition: HOME SELF-CARE
[2019-08-22 14:03] VITALS: BP 104/58; PULSE 88; RESP 20; TEMP 98.4
--- NOTE | 2019-08-22 15:57 | P.CNNES ---
History of Present Illness Consult date: 08/22/19 Reason for Consult: ALS Chief complaint: Shortness of breath History of Present Illness: REFERRING PHYSICIAN: Dr. Dallas Koo HISTORY OF PRESENT ILLNESS: Thank you for allowing me to evaluate Ms. Ni Lerma is a 74-year-old woman with past medical history of stroke, hyperlipidemia, hypertension, ALS on feeding tube, anxiety and depression, presenting with shortness of breath, consulted neurology for patient's diagnosis of ALS. Patient was diagnosed in April of this year. She sees a specialist at [facility]. She had a feeding tube placed in May 2019. Patient apparently had not wanted the feeding tube, but her family this patient to get it. Patient's daughter is at bedside. Daughter is frustrated that a lot of the hospital stay here are not trained in taking care of ALS patients. I discussed in detail with the daughter and the patient about the management of ALS, and its natural progression. Patient daughter had discussed with the ALS specialist about the placement of tracheostomy to prevent future aspiration events. Helder johnson refused this procedure. Also discussed in length about how the procedure future multiple hospitalizations, and help prolong her life expectancy, but of course is not a cure for ALS. PAST MEDICAL HISTORY: stroke, hyperlipidemia, hypertension, ALS on feeding tube, anxiety and depression PAST SURGICAL HISTORY: Cholecystectomy, hernia repair, feeding tube placement HOME MEDICATIONS: Omeprazole, pravastatin, citalopram, loratadine, riluzole, losartan ALLERGIES: NO KNOWN DRUG ALLERGIES SOCIAL HISTORY: Former smoker. REVIEW OF SYSTEMS: The 14 systems are reviewed and no additional points are identified compared to the review of systems documented history and physical PHYSICAL EXAMINATION: VITAL SIGNS: T 98.0 HR 82 RR 16 BP 97/57 O2 saturation 95% via nasal cannula on 3 L of oxygen GEN.: Exasperated, but cooperative HEENT: NCAT, sclera without icterus NECK: Supple SKIN AND EXTREMITIES: Warm to touch, no edema NEURO: MENTAL STATUS: Patient alert and oriented to self, place, time. Patient uses a boogie board to answer questions. However, patient showing extreme frustration, and not wanting to participate in most of the exam CRANIAL NERVES II THROUGH XII: II: Pupils are equal and reactive to light sy mmetrically. Visual edwards are intact. III, IV, : No ptosis. Extraocular movements full. VII. No clear facial asymmetry. XII: Tongue midline, showing fasciculation and atrophy. MOTOR: At least antigravity in all 4 extremities. Atrophy in the thenar imminence bilaterally. No fasciculations noted in her upper extremities or the pectoralis muscles. DIAGNOSTIC TESTING: LABORATORY: WBC 5.6 hemoglobin 12.6 platelet 180 PT 9.8 INR 0.9 d-dimer 0.62 Sodium 138 potassium 4.7 chloride 95 bicarbonate 39 BUN 27 creatinine 0.40 glucose 119 AST 22 ALT 13 alk phos 63 CK 137 troponin <0.012 urinalysis large leukesterase, 25 WBC, rare mucus IMAGING: Chest x-ray 08/21/2019: There is increased pleural reaction and right middle lobe infiltrate compared to last exam. There is probably mild pulmonary fibrosis. ASSESSMENT: Ms. Lerma is a 74-year-old woman with past medical history of stroke, hyperlipidemia, hypertension, ALS on feeding tube, anxiety and depression, presenting with shortness of breath, consulted neurology for patient's diagnosis of ALS. Patient and family are very well aware of the progression of this disease. Patient has progressed relatively quickly since her diagnosis in April 2019. Discussed my recommendation for a tracheostomy, but daughter states that she doesn't want to necessarily have her mother go through another painful procedure just prolong her life as they know there is no sure for this disease. RECOMMENDATIONS: 1. Follow-up with her ALS specialist at [facility]. She has an appointment for 09/06/2019. 2. Neurology will sign off at this time. Please feel free to contact Neurology again if with additional questions or concerns. Past Medical History Past Medical History: GERD/Reflux, Hyperlipidemia, Hypertension Additional Past Medical History / Comment(s): als, feeding tube History of Any Multi-Drug Resistant Organisms: None Reported Past Surgical History: Cholecystectomy, Hernia Repair Additional Past Surgical History / Comment(s): feeding tube Past Psychological History: Anxiety, Depression Smoking Status: Former smoker Past Alcohol Use History: None Reported Past Drug Use History: None Reported Medications and Allergies Home Medications Medication Instructions Recorded Confirmed Type ALPRAZolam [Xanax] 0.5 mg PO BID PRN 04/22/19 08/21/19 History Citalopram Hydrobromide 20 mg PO DAILY 04/22/19 08/21/19 History [Citalopram HBr] Omeprazole 20 mg PO DAILY 04/22/19 08/21/19 History Pravastatin Sodium [Pravachol] 40 mg PO DAILY 04/22/19 08/21/19 History Loratadine [Claritin] 10 mg PO DAILY 08/21/19 08/21/19 History Riluzole [Rilutek] 50 mg PO Q12H 08/21/19 08/21/19 History Albuterol Nebulized [Ventolin 2.5 mg INHALATION Q4H PRN #90 nebu 08/22/19 Rx Nebulized] Amoxic-Pot Clav 875-125Mg 1 tab PO BID 7 Days #14 tab 08/22/19 Rx [Augmentin 875-125] Allergies Allergy/AdvReac Type Severity Reaction Status Date / Time No Known Allergies Allergy Verified 08/21/19 16:31 Physical Examination - Vital Signs Vital Signs: Vital Signs Temp Pulse Pulse Resp BP BP Pulse Ox 08/22/19 04:48 98.0 F 82 16 97/57 95 08/21/19 21:48 98.4 F 78 17 116/69 94 L 08/21/19 21:22 98.3 F 78 18 110/54 93 L 08/21/19 20:39 78 08/21/19 20:27 75 08/21/19 19:13 98.3 F 79 18 108/60 93 L 08/21/19 18:12 84 08/21/19 18:01 80 08/21/19 17:58 77 L 08/21/19 16:00 80 19 120/61 93 L 08/21/19 15:49 98.2 F 79 22 110/51 77 L Intake and Output 08/21/19 08/22/19 08/22/19 22:59 06:59 14:59 Other: Voiding Method Bedside Commode # Voids 2 Weight 63.049 kg Results - Laboratory Findings CBC and BMP: 08/21/19 17:00 08/21/19 17:00 Abnormal Lab Findings: Abnormal Labs 08/21/19 08/21/19 08/21/19 17:00 17:00 17:08 D-Dimer 0.62 H Chloride 95 L Carbon Dioxide 39 H BUN 27 H Creatinine 0.40 L Glucose 119 H Creatine Kinase 137 H Total Protein 6.1 L Albumin 3.4 L Ur Leukocyte Esterase Large H Urine WBC 25 H Urine Mucus Rare H
[2019-08-22] MEDS ORDERED: LEVOFLOXACIN 750MG-D5W PMX 750 MG in DEXTROSE/WATER 1 150ML.BAG IVPB SCH (23:00)
== END 2019-08-22 16:36 | disposition home or self-care (01) | DRG 178 ==
LOC: EC 15:44 → 4MS4W 19:21
PROVIDERS: ADMIT Hospitalist; ATTEND Hospitalist
DX: J69.0 Pneumonitis due to inhalation of food and vomit (principal); G12.21 Amyotrophic lateral sclerosis; E78.5 Hyperlipidemia, unspecified; F32.9 Major depressive disorder, single episode, unspecified; F41.9 Anxiety disorder, unspecified; I10 Essential (primary) hypertension; K21.9 Gastro-esophageal reflux disease without esophagitis; R09.02 Hypoxemia; R29.6 Repeated falls; Z79.899 Other long term (current) drug therapy; Z86.73 Personal history of transient ischemic attack (TIA), and cerebral infarction without residual deficits; Z87.891 Personal history of nicotine dependence; Z99.81 Dependence on supplemental oxygen; Z74.01 Bed confinement status; Z93.1 Gastrostomy status; Z90.49 Acquired absence of other specified parts of digestive tract; J84.10 Pulmonary fibrosis, unspecified; J98.01 Acute bronchospasm
CPT/HCPCS: 36415; 71046; 80053; 81001; 82550; 83735; 83880; 84484; 85025; 85379; 85610; 85730; 87040; 87086; 93005; 94640; 99291